=== PATIENT | female | born 1955 | race Caucasian/White ===

== ENCOUNTER 2022-04-16 05:14 | Day surgery (SDC) | payer MEDICARE, OTHER ==
[2022-04-16] MEDS ORDERED: Lactated Ringers 1,000 ML IV SCH (05:30)
[2022-04-16] MEDS ORDERED: CLINDAMYCIN-D5W 900 MG/50 ML*** 900 MG/50 ML BAG IV SCH (05:30)
[2022-04-16] MEDS ORDERED: Xylocaine-Mpf 2% 5 Ml Vial ONE (06:34)
[2022-04-16] MEDS ORDERED: Decadron 4 MG INJ ONE ×2 (06:34→06:46)
[2022-04-16] MEDS ORDERED: Zofran 4 MG/2 ML VIAL ONE (06:34)
[2022-04-16] MEDS ORDERED: Zemuron 100 MG/10 ML ONE (06:34)
[2022-04-16] MEDS ORDERED: BRIDION 200MG/2ML IV ONE (06:34)
[2022-04-16] MEDS ORDERED: DIPRIVAN 200 MG/20 ML IV ONE (06:34)
[2022-04-16] MEDS ORDERED: SUBLIMAZE 100 MCG/2 ML ONE ×2 (06:38→08:46)
[2022-04-16] MEDS ORDERED: Marcaine 0.5%/Epinephrine 10 ML ONE (06:46)
[2022-04-16] MEDS ORDERED: PHENYLEPHRINE HCL ONE (07:19)
[2022-04-16] MEDS ORDERED: Lactated Ringers 1,000 ML IV ONE (07:28)
[2022-04-16] MEDS ORDERED: XYLOCAINE 1% HCL 20 ML MDV ONE (07:28)
[2022-04-16] MEDS ORDERED: Marcaine Mpf 0.5% Vial 30 Ml ONE (07:28)
[2022-04-16] MEDS ORDERED: Magnesium Sulfate 1 GM/2 ML VIAL ONE (07:31)
[2022-04-16] MEDS ORDERED: OFIRMEV 100 ML IV ONE (07:31)
[2022-04-16] MEDS ORDERED: Ketamine HCl 50 MG/ML ONE (07:32)
--- NOTE | 2022-04-16 09:10 | XRAY ---
Indication: Left posterior calcanectomy with Achilles tendon detachment, debridement, and reattachment. Intraoperative fluoroscopy provided for 42 seconds. 12 digital spot images submitted for interpretation ultimately demonstrates partial resection posterior superior calcaneus. Correlate with intraoperative findings/report.
--- NOTE | 2022-04-16 10:01 | OP ---
SURGERY DATE/TIME: 04/16/2022 0648 PREOPERATIVE DIAGNOSES: 1) Left ankle pain. 2) Posterior superior calcaneal exostosis. 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 POSTOPERATIVE DIAGNOSES: 1) Left ankle pain. 2) Posterior superior calcaneal exostosis. 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 PROCEDURES: 1) Achilles tendon detachment, debridement and reattachment. 2) Posterior superior calcaneal exostectomy. SURGEON: Jamin Persaud DPM. [employer] SUPERINTENDENT: None. ANESTHESIA: General. HEMOSTASIS: Thigh tourniquet set to 300 mm of Mercury for 35 total tourniquet minutes. ESTIMATED BLOOD LOSS: Less than approximately 5 cc. MATERIALS: Chun SpeedBridge 2.9 JuggerKnot with broadband and two - 4.5 mm Quattro Link, 4-0 Monocryl and 3-0 Nylon. INJECTABLES: 30 cc of a 1:1 mixture of 1% lidocaine plain and 0.5% bupivacaine plain injected in a posterior ankle block proximal to the surgical site. INDICATION FOR PROCEDURE: Emmy is a very pleasant 67-year-old female well known to my service for pain to the posterior aspect of the Achilles tendon. The patient has seen multiple providers for this issue and has failed all conservative therapy for this. She has had stretching exercises, night splints, physical therapy, Medrol Dosepak and nonweight bearing for some period of time without significant relief of her symptomatology. At this time the patient is willing to proceed with surgical intervention. The patient understands the potential risks, benefits and complications including but not limited to infection, hematoma, seroma, possibility of delayed wound healing or nonwound healing, possibility of delayed tendon to bone interface, possibility of tendon rupture and possibility of deep vein thrombosis. The patient understands all of these risks and has consented. The patient would like to proceed with the surgery. No guarantees were provided as to the outcome today. It is with that we decided to proceed. DESCRIPTION OF PROCEDURE AND FINDINGS: The patient was brought into the OR and placed under anesthesia on the operative cart. The patient was then transported to the table carefully in the prone position. A thigh tourniquet was applied and the tourniquet was sent to 300 mm of Mercury. At this time the left lower extremity was prepped and draped in the typical sterile fashion and lowered onto the surgical field. At this time attention was directed under lateral view of fluoroscopy to the calcaneus. Esmarch was utilized to exsanguinate the leg and the tourniquet was inflated. A linear incision was made down the central aspect of the Achilles tendon which was palpable this was carried down to the level of the paratenon. The tendon was inspected initially. An inverted T-type incision was then made reflecting the distal aspect of the Achilles tendon off of the calcaneus. A significant amount of heel spurs were identified. A 31 mm sagittal saw was then utilized to resect the portion of spurs at the posterior aspect of the Achilles tendon and Jacques's deformity was then resected. A power prasanna was then utilized to smooth down the surfaces. Following this, copious amounts of irrigation were performed. The tendon was then inspected for any calcifications which were cut out utilizing a 15 blade until no longer any calcifications were identified within the surgical site. Following this, a Chun SpeedBridge was utilizing 2.9 Juggernauts with BroadBand inserted in proximal row this was retrograded out of the distal aspect of the tendon and then an inverted row-type fashion anchored into the distal aspect of the Achilles tendon. Prior to anchoring 2-0 Vicryl was then utilized to coapt the two edges of the tendon in an all-inside type stitch to the tendon to prevent from irritation. Following this under tension the anchors were tested. The 4.5 Quattro Link anchors were tested and deemed to be in adequate fixation to the posterior aspect of the calcaneus. Copious amounts of sterile saline were then utilized to flush the surgical site. 4-0 Monocryl was utilized to repair the paratenon as well as the subcutaneous skin edges in a simple interrupted buried-type fashion. Following this, 3-0 Nylon was utilized to coapt the surgical skin edges in a horizontal mattress-type fashion with everted edges. Following this, a block consisting of 30 cc of a 1:1 mixture of 1% lidocaine plain and 0.5% bupivacaine plain was injected in a posterior ankle block-type fashion. The patient then had a dressing consisting of Hibiclens, Adaptic, 4x4 and a well-padded posterior splint was applied to the left lower extremity. The patient then was reversed from anesthesia and returned to the postoperative anesthesia care unit with vital signs stable and vascular status intact. The patient handled the anesthesia as well as the procedure without significant complication. Postoperative orders as indicated in the patient's discharge chart.
[2022-04-16 10:13] VITALS: BP 132/84; PULSE 51; O2SAT 96
== END 2022-04-16 10:15 | disposition home or self-care (01) ==
LOC: SDC 05:14
PROVIDERS: ATTEND Podiatrist Foot & Ankle Surgery
DX: M76.62 Achilles tendinitis, left leg (principal); M89.8X7 Other specified disorders of bone, ankle and foot; M25.572 Pain in left ankle and joints of left foot
CPT/HCPCS: 27654; 28118; 73610; 76000; 76937; C1713; J1100; J2370; J2405; J2704; J3010; J3475